=== PATIENT | female | born 1950 | race Caucasian/White ===

== ENCOUNTER 2025-02-22 06:50 | Inpatient (IN) | payer MEDICARE, OTHER ==
[~2025-02-22] VITALS: Ht 162.6 cm; Wt 54.0 kg
[2025-02-22 08:30] LABS: CALCIUM, SERUM 9.1 mg/dL (8.5-10.1); CARBON DIOXIDE 29 mmol/L (21-32); CHLORIDE 106 mmol/L (98-107); CREATININE 0.8 mg/dL (0.6-1.3); GLUCOSE 89 mg/dL (74-106); POTASSIUM 3.8 mmol/L (3.5-5.1); SODIUM SERUM 143 mmol/L (136-145); UREA NITROGEN, BLOOD 14 mg/dL (7-18)
[2025-02-22 08:36] LABS: ACETAMINOPHEN <10 ug/ml (10-30); ALANINE AMINOTRANSFERASE 18 U/L (12-78); ALBUMIN 3.7 g/dL (3.4-5.0); ALCOHOL, BLOOD < 3 mg/dL (0-10); ALKALINE PHOSPHATASE 93 U/L (46-116); ASPARTATE AMINOTRANSFERASE 21 U/L (15-37); BILIRUBIN,DIRECT 0.1 mg/dL (0.0-0.2); BILIRUBIN,TOTAL 0.5 mg/dL (0.2-1.0); SALICYLATE 0.4 mg/dL (2.8-20.0); TOTAL PROTEIN, SERUM 7.1 g/dL (6.4-8.2)
[2025-02-22 08:37] LABS: BASOPHILS % (AUTO) 0.3 % (0.0-2.0); EOSINOPHILS # (AUTO) 0.1 K/uL (0.0-0.7); EOSINOPHILS % (AUTO) 2.3 % (0.0-6.0); HEMATOCRIT 42 % (33-45); LYMPHOCYTES # (AUTO) 1.4 K/uL (0.8-4.8); LYMPHOCYTES % (AUTO) 28.1 % (20.0-44.0); MEAN CORPUSCULAR HEMOGLOBIN 31 PG (26.0-33.0); MEAN CORPUSCULAR HGB CONC 33 g/dl (31.0-36.0); MEAN CORPUSCULAR VOLUME 92 fL (82-100); MONOCYTES # (AUTO) 0.4 K/uL (0.1-1.30); MONOCYTES % (AUTO) 8.7 % (2.0-12.0); NEUTROPHILS % (AUTO) 60.6 % (43.0-81.0); PLATELET COUNT (AUTO) 186 K/uL (150-450); RED BLOOD CELL COUNT(AUTO) 4.58 MIL/uL (4.0-5.2); RED CELL DISTRIBUTION WIDTH 13.3 % (11.5-15.0)
[2025-02-22 08:48] LABS: AMPHETAMINE, URINE NEGATIVE (NEGATIVE); BARBITURATE, URINE NEGATIVE (NEGATIVE); BENZODIAZEPINE, URINE NEGATIVE (NEGATIVE); CANNABINOID, URINE NEGATIVE (NEGATIVE); COCCAINE, URINE NEGATIVE (NEGATIVE); OPIATE, URINE NEGATIVE (NEGATIVE); PHENCYCLIDINE SCREEN,URINE NEGATIVE (NEGATIVE)
[2025-02-22 08:52] LABS: APPEARANCE,URINE CLEAR (CLEAR); BILIRUBIN,URINE NEGATIVE (NEGATIVE); BLOOD, URINE NEGATIVE Ery/uL (NEGATIVE); COLOR,URINE YELLOW (YELLOW); KETONES,URINE NEGATIVE (NEGATIVE); LEUKOCYTE ESTERASE ,URINE NEGATIVE (NEGATIVE); NITRITE, URINE NEGATIVE (NEGATIVE); PROTEIN,URINE NEGATIVE (NEGATIVE); UGLUCOSE NEGATIVE (NEGATIVE); UROBILINOGEN,URINE 0.2 EU/dL (0.2)
[2025-02-22] MEDS ORDERED: OLANZAPINE 5 MG TABLET PO ONE (09:30)
[2025-02-22] MEDS ORDERED: OLANZAPINE 10 MG VIAL IM ONE (09:47)
[2025-02-22] MEDS: OLANZAPINE 10 MG VIAL IM ONE (09:51)
[2025-02-22] MEDS ORDERED: MAGNESIUM HYDROXIDE 30 ML UDC PO PRN (13:00)
[2025-02-22] MEDS ORDERED: Z GUARD REMEDY 4 OZ OINT TP PRN (13:00)
[2025-02-22] MEDS ORDERED: MAG HYDROX/AL HYDROX/SIMETH 30 ML UDC PO PRN (13:00)
[2025-02-22] MEDS ORDERED: ONDANSETRON HCL/PF 4 MG/2 ML VIAL IVP PRN (13:00)
[2025-02-22] MEDS ORDERED: ENOXAPARIN SODIUM 30 MG/0.3 ML DISP.SYRIN SQ SCH (13:00)
[2025-02-22] MEDS ORDERED: ACETAMINOPHEN 325 MG TABLET PO PRN (13:00)
[2025-02-22] MEDS: ENOXAPARIN SODIUM 40 MG/0.4 ML DISP.SYRIN SQ SCH (13:30)
[2025-02-22] MEDS ORDERED: ENOXAPARIN SODIUM 40 MG/0.4 ML DISP.SYRIN SQ ONE (16:00)
[2025-02-23] MEDS: OLANZAPINE 10 MG VIAL IM ONE (00:03)
[2025-02-23 04:00] VITALS: BP 122/85; TEMP 97.5; O2SAT 95
[2025-02-23] MEDS: QUETIAPINE FUMARATE 25 MG TABLET PO SCH (11:36)
[2025-02-23] MEDS: risperiDONE 0.25 MG TABLET PO SCH (13:30)
[2025-02-23] MEDS: DIVALPROEX SODIUM 250 MG TABLET.DR PO SCH (13:30)
[2025-02-23 15:53] LABS: CALCIUM, SERUM 9.1 mg/dL (8.5-10.1); CREATININE 0.8 mg/dL (0.6-1.3); MAGNESIUM 2.3 mg/dL (1.8-2.4); PHOSPHORUS 3.8 mg/dL (2.5-4.9); POTASSIUM 3.7 mmol/L (3.5-5.1)
[2025-02-23 15:57] LABS: BASOPHILS % (AUTO) 0.4 % (0.0-2.0); EOSINOPHILS # (AUTO) 0.2 K/uL (0.0-0.7); EOSINOPHILS % (AUTO) 2.7 % (0.0-6.0); HEMATOCRIT 42 % (33-45); HEMOGLOBIN 14.2 g/dL (11.5-14.8); LYMPHOCYTES % (AUTO) 31.9 % (20.0-44.0); MEAN CORPUSCULAR HEMOGLOBIN 30 PG (26.0-33.0); MEAN CORPUSCULAR HGB CONC 33 g/dl (31.0-36.0); MEAN CORPUSCULAR VOLUME 91 fL (82-100); MONOCYTES # (AUTO) 0.5 K/uL (0.1-1.30); MONOCYTES % (AUTO) 8.7 % (2.0-12.0); NEUTROPHILS # (AUTO) 3.5 K/uL (1.8-8.9); NEUTROPHILS % (AUTO) 56.3 % (43.0-81.0); PLATELET COUNT (AUTO) 189 K/uL (150-450); RED BLOOD CELL COUNT(AUTO) 4.67 MIL/uL (4.0-5.2); RED CELL DISTRIBUTION WIDTH 13.1 % (11.5-15.0); WHITE BLOOD COUNT (AUTO) 6.2 K/uL (4.3-11.0)
[2025-02-23 16:00] VITALS: BP 124/78; TEMP 97.8; O2SAT 96
[2025-02-24] VITALS: BP 119/75; TEMP 97.5; O2SAT 100
[2025-02-24 04:00] VITALS: BP 128/80; TEMP 97.5; O2SAT 100
[2025-02-24 08:00] VITALS: BP 162/85; TEMP 97.5; O2SAT 96
[2025-02-24 09:00] VITALS: BP 134/78; TEMP 97.7; O2SAT 95
[2025-02-24] MEDS ORDERED: DIVA250T4 PO (10:54)
[2025-02-24] MEDS ORDERED: RISP0.2515 PO (10:54)
[2025-02-24] MEDS ORDERED: ACET325T53 PO ×2 (10:54→16:22)
[2025-02-24] MEDS ORDERED: RISP0.5T65 PO (16:22)
[2025-02-24] MEDS ORDERED: MAG30ORA PO (16:22)
[2025-02-24] MEDS ORDERED: ALLA266C2 TP (16:22)
[2025-02-24] MEDS ORDERED: DIVA-76 PO (16:22)
[2025-02-24] MEDS ORDERED: MAGN400O6 PO (16:22)
== END 2025-02-24 15:19 | DRG 71 ==
LOC: ER 07:01 → TRANSITION 12:58 → MEDSG1 18:42
PROVIDERS: ATTEND Nurse Practitioner Acute Care
DX: G93.41 Metabolic encephalopathy (principal); F03.93 Unspecified dementia, unspecified severity, with mood disturbance; F31.2 Bipolar disorder, current episode manic severe with psychotic features; Z91.83 Wandering in diseases classified elsewhere; F39 Unspecified mood [affective] disorder; F29 Unspecified psychosis not due to a substance or known physiological condition; Z73.6 Limitation of activities due to disability
CPT/HCPCS: 36415; 70450-TC; 71045-TC; 80048-TC; 80076-TC; 82140-TC; 83735-TC; 84100-TC; 84443-TC; 85025-TC; 87081-TC; 97110-TC; 97112-TC; 97116-TC; 97530-TC; G0378; G0480; J1650; J2405; J3490

== ENCOUNTER 2025-02-24 14:53 | Inpatient (IN) | payer MEDICARE, OTHER ==
[~2025-02-24] VITALS: Ht 167.6 cm; Wt 72.6 kg
[~2025-02-24 14:53] MED LIST: ACET325T53 PO; DIVA250T4 PO; RISP0.2515 PO
[2025-02-24] MEDS ORDERED: ACETAMINOPHEN 325 MG TABLET PO PRN (16:00)
[2025-02-24] MEDS ORDERED: MAGNESIUM HYDROXIDE 30 ML UDC PO PRN (16:00)
[2025-02-24] MEDS ORDERED: MAG HYDROX/AL HYDROX/SIMETH 30 ML UDC PO PRN (16:00)
[2025-02-24] MEDS ORDERED: ACET325T53 PO (16:22)
[2025-02-24] MEDS ORDERED: DIVA-76 PO (16:22)
[2025-02-24] MEDS ORDERED: RISP0.5T65 PO (16:22)
[2025-02-24] MEDS ORDERED: MAGN400O6 PO (16:22)
[2025-02-24] MEDS ORDERED: MAG30ORA PO (16:22)
[2025-02-24] MEDS ORDERED: ALLA266C2 TP (16:22)
[2025-02-24] MEDS: BLOOD SUGAR DIAGNOSTIC 1 EACH STRIP IN ONE (16:29)
[2025-02-24] MEDS: risperiDONE 1 MG TABLET PO SCH (21:34)
[2025-02-24] MEDS: DIVALPROEX SODIUM 125 MG CAP.SPRINK PO SCH (21:34)
[2025-02-25 07:25] LABS: ALBUMIN 2.9 g/dL (3.4-5.0); BILIRUBIN,TOTAL 0.4 mg/dL (0.2-1.0); CALCIUM, SERUM 8.8 mg/dL (8.5-10.1); CREATININE 0.8 mg/dL (0.6-1.3); POTASSIUM 3.9 mmol/L (3.5-5.1); TOTAL PROTEIN, SERUM 6.1 g/dL (6.4-8.2)
[2025-02-25 07:32] LABS: CHOLESTEROL 236 mg/dL (<200); HDL CHOLESTEROL 64 mg/dL (40-60); LDL 142 mg/dL (0-99); TRIGLYCERIDES 172 mg/dL (30-150)
[2025-02-25 08:00] VITALS: BP 130/80; TEMP 98; O2SAT 96
[2025-02-25 16:00] VITALS: BP 95/63; TEMP 97.9; O2SAT 97
[2025-02-25 16:11] LABS: CREATININE 0.9 mg/dL (0.6-1.3)
[2025-02-25 20:00] VITALS: BP 131/84; TEMP 98.2; O2SAT 98
[2025-02-26 07:57] LABS: BASOPHILS % (AUTO) 0.6 % (0.0-2.0); EOSINOPHILS # (AUTO) 0.2 K/uL (0.0-0.7); EOSINOPHILS % (AUTO) 4.4 % (0.0-6.0); HEMATOCRIT 41 % (33-45); HEMOGLOBIN 13.7 g/dL (11.5-14.8); LYMPHOCYTES # (AUTO) 1.6 K/uL (0.8-4.8); LYMPHOCYTES % (AUTO) 37.9 % (20.0-44.0); MEAN CORPUSCULAR HEMOGLOBIN 31 PG (26.0-33.0); MEAN CORPUSCULAR HGB CONC 33 g/dl (31.0-36.0); MEAN CORPUSCULAR VOLUME 92 fL (82-100); MONOCYTES # (AUTO) 0.4 K/uL (0.1-1.30); MONOCYTES % (AUTO) 9.2 % (2.0-12.0); NEUTROPHILS # (AUTO) 2.1 K/uL (1.8-8.9); NEUTROPHILS % (AUTO) 47.9 % (43.0-81.0); PLATELET COUNT (AUTO) 150 K/uL (150-450); RED BLOOD CELL COUNT(AUTO) 4.45 MIL/uL (4.0-5.2); RED CELL DISTRIBUTION WIDTH 13.2 % (11.5-15.0); WHITE BLOOD COUNT (AUTO) 4.3 K/uL (4.3-11.0)
[2025-02-26 08:00] VITALS: BP 105/62; TEMP 98; O2SAT 100
[2025-02-26 08:07] LABS: CALCIUM, SERUM 8.9 mg/dL (8.5-10.1); CREATININE 0.7 mg/dL (0.6-1.3); MAGNESIUM 1.9 mg/dL (1.8-2.4); PHOSPHORUS 3.7 mg/dL (2.5-4.9); POTASSIUM 4.2 mmol/L (3.5-5.1)
[2025-02-26 16:00] VITALS: BP 130/61; TEMP 98; O2SAT 98
[2025-02-26 20:14] VITALS: BP 115/67; TEMP 98; O2SAT 98
[2025-02-26] MEDS: risperiDONE 1 MG TABLET PO SCH (21:13)
[2025-02-27 08:00] VITALS: BP 150/100; TEMP 97.8; O2SAT 99
[2025-02-27 16:00] VITALS: BP 105/70; TEMP 98; O2SAT 96
[2025-02-27 20:27] VITALS: BP 119/70; TEMP 98.4; O2SAT 98
[2025-02-28 08:00] VITALS: BP 102/61; TEMP 97.7; O2SAT 100
[2025-02-28 16:12] VITALS: BP 119/80; TEMP 97.8; O2SAT 98
[2025-02-28] MEDS: risperiDONE 1 MG TABLET PO PRN (17:25)
[2025-02-28 23:09] VITALS: BP 130/86; TEMP 98.1; O2SAT 96
[2025-03-01 08:00] VITALS: BP 117/77; TEMP 98.6; O2SAT 100
[2025-03-01 15:24] VITALS: BP 125/77; TEMP 98.4; O2SAT 97
[2025-03-01 20:22] VITALS: BP 125/81; TEMP 98.3; O2SAT 96
[2025-03-01] MEDS: TEMAZEPAM 7.5 MG CAPSULE PO PRN (21:36)
[2025-03-01] MEDS: risperiDONE 1 MG TABLET PO SCH (21:37)
[2025-03-02 08:00] VITALS: BP 115/90; TEMP 97.5; O2SAT 95
[2025-03-02] MEDS: DIVALPROEX SODIUM 125 MG CAP.SPRINK PO SCH (14:00)
[2025-03-02 16:00] VITALS: BP 106/86; TEMP 98.1; O2SAT 98
[2025-03-02 20:06] VITALS: BP 129/83; TEMP 98.6; O2SAT 98
[2025-03-03 08:00] VITALS: BP 120/80; TEMP 98.1; O2SAT 98
[2025-03-03 16:00] VITALS: BP 120/77; TEMP 98.7; O2SAT 98
[2025-03-03 20:06] VITALS: BP 137/99; TEMP 98.1; O2SAT 98
[2025-03-04 08:00] VITALS: BP 118/67; TEMP 97.9; O2SAT 96
[2025-03-04 16:00] VITALS: BP 126/82; TEMP 98; O2SAT 99
[2025-03-04 20:00] VITALS: BP 132/74; TEMP 97.5; O2SAT 97
[2025-03-04] MEDS: risperiDONE 1 MG TABLET PO SCH (21:18)
[2025-03-04] MEDS: ATORVASTATIN 40 MG TABLET PO SCH (21:18)
[2025-03-05 08:00] VITALS: BP 124/79; TEMP 97.8; O2SAT 94
[2025-03-05 16:00] VITALS: BP 126/71; TEMP 97.8; O2SAT 96
[2025-03-05 20:00] VITALS: BP 125/66; TEMP 97.8; O2SAT 96
[2025-03-06 08:00] VITALS: BP 122/60; TEMP 97.7; O2SAT 96
[2025-03-06 16:00] VITALS: BP 106/62; TEMP 98; O2SAT 94
[2025-03-06 20:23] VITALS: BP 120/62; TEMP 97.5; O2SAT 96
[2025-03-07 08:00] VITALS: BP 119/68; TEMP 98.9; O2SAT 97
[2025-03-07 15:51] VITALS: BP 119/72; TEMP 98.1; O2SAT 96
[2025-03-07 20:12] VITALS: BP 132/86; TEMP 98.1; O2SAT 99
[2025-03-08 08:00] VITALS: BP 151/77; TEMP 98.1; O2SAT 100
[2025-03-08 16:00] VITALS: BP 112/89; TEMP 98.6; O2SAT 97
[2025-03-08 20:10] VITALS: BP 122/67; TEMP 98.4; O2SAT 96
[2025-03-08 22:35] VITALS: BP 122/67; TEMP 98.4; O2SAT 96
[2025-03-09 08:00] VITALS: BP 114/73; TEMP 97.8; O2SAT 100
[2025-03-09 16:01] VITALS: BP 106/78; TEMP 97.8; O2SAT 100
[2025-03-09 20:06] VITALS: BP 113/64; TEMP 97.9; O2SAT 100
[2025-03-10 08:00] VITALS: BP 123/73; TEMP 98.3; O2SAT 96
== END 2025-03-10 14:15 | DRG 885 ==
LOC: GPS 14:53
PROVIDERS: ADMIT Psychiatry & Neurology Psychiatry; ATTEND Internal Medicine
DX: F25.0 Schizoaffective disorder, bipolar type (principal); F03.92 Unspecified dementia, unspecified severity, with psychotic disturbance; F03.93 Unspecified dementia, unspecified severity, with mood disturbance; E44.0 Moderate protein-calorie malnutrition; G93.40 Encephalopathy, unspecified; F29 Unspecified psychosis not due to a substance or known physiological condition; F39 Unspecified mood [affective] disorder; Z91.83 Wandering in diseases classified elsewhere; E88.09 Other disorders of plasma-protein metabolism, not elsewhere classified; E78.5 Hyperlipidemia, unspecified; Z73.6 Limitation of activities due to disability
CPT/HCPCS: 36415; 80048-TC; 80053-TC; 80061-TC; 80164-TC; 82565-TC; 82962-TC; 83735-TC; 84100-TC; 85025-TC